=== PATIENT | female | born 2005 | race Caucasian/White ===

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

== ENCOUNTER → 2023-08-22 | Outpatient (CLI) | payer OTHER, SELFPAY ==
--- OUTSIDE RECORDS SUMMARY | 2023-08-22 18:09 | XMS RPT_ITS | CCD ---
Author Name Unknown Address [address] [place] [address] Organization [facility] Results Test Name Value Interpretation Reference Range Facil ity Progress note 06-22-2021 Note Date & Type Note Facility 06-22-2021 Note HNO ID: [id number] Author: Jules Bello APRN.[employer] Service: ? Author Type: Nurse Practitioner Type: Progress Notes Filed: 06/22/2021 3:27 PM Note Text: Subjective HPI Nontoxic appearing female presents urgent care chiefly COVID-19 concerns. Patient states she was exposed to a teammate who tested positive for COVID-19 on Friday. Presents today for COVID-19 testing. Patient is asymptomatic. No pain no OTC medication use. Denies history of COVID-19 is not vaccinated. Denies any fever body aches chills cough chest pain shortness of breath pleuritic pain nausea vomiting abdominal pain headaches dizziness change in bowel or bladder habits. Past medical history prescription medication use allergies reviewed. .Patient presents with: COVID exposure: COVID exposure PAST MEDICAL HISTORY Diagnosis Date - Menstrual periods irregular -2014 Age 9 - NEGATIVE MEDICAL HISTORY 2010 normal color vision PAST SURGICAL HISTORY Procedure Laterality Date - NONE ALLERGIES Patient has no known allergies. MEDICATIONS No prescriptions on file. FAMILY HISTORY Problem Relation Age of Onset - Thyroid Maternal Grandmother - Cancer Paternal Grandfather Prostate cancer - Cancer Other Paternal Great Grandmother -Breast cancer - Blood Disease Other Blood clots Social History Tobacco Use - Smoking status: Passive Smoke Exposure - Never Smoker - Smokeless tobacco: Never Used - Tobacco comment: outdoors only Substance Use Topics - Alcohol use: No - Drug use: No BP 128/80 Pulse 94 Temp 36.7 ?C (98.1 ?F) (Tympanic) Resp 16 Wt 79.8 kg (176 lb) LMP (LMP Unknown) SpO2 98% Review of Systems Constitutional: Negative for chills, fever and malaise/fatigue. HENT: Negative for congestion, ear discharge, ear pain, sinus pain and sore throat. Eyes: Negative for blurred vision, pain, discharge and redness. Respiratory: Negative for cough, hemoptysis, sputum production, shortness of breath, wheezing and stridor. Cardiovascular: Negative for chest pain. Gastrointestinal: Negative for abdominal pain, diarrhea, nausea and vomiting. Musculoskeletal: Negative for myalgias. Skin: Negative for itching and rash. Neurological: Negative for dizziness and headaches. Objective Physical Exam Constitutional: General: She is not in acute distress. Appearance: She is not diaphoretic. HENT: Head: Normocephalic. Mouth/Throat: Mouth: Mucous membranes are moist. Pharynx: Oropharynx is clear. No oropharyngeal exudate or posterior oropharyngeal erythema. Eyes: Conjunctiva/sclera: Conjunctivae normal. Pupils: Pupils are equal, round, and reactive to light. Cardiovascular: Rate and Rhythm: Normal rate and regular rhythm. Heart sounds: Normal heart sounds. Pulmonary: Effort: Pulmonary effort is normal. No tachypnea, accessory muscle usage or respiratory distress. Breath sounds: Normal breath sounds. No stridor. Abdominal: Palpations: Abdomen is soft. Tenderness: There is no abdominal tenderness. Musculoskeletal: Cervical back: Normal range of motion and neck supple. No rigidity or tenderness. Lymphadenopathy: Cervical: No cervical adenopathy. Skin: General: Skin is warm and dry. Neurological: Mental Status: She is alert and oriented to person, place, and time. ASSESSMENT/PLAN: 1. Exposure to COVID-19 virus - ICD9: V01.79, ICD10: Z20.822 - COVID, FLU A/B + RSV, ROUTINE COVID-19 test ordered results pending. Home quarantine recommended. Red flags for prompt reevaluation discussed. Jules Bello APRN.[facility] Summary Purpose Family History No Family History Records Found Advance Directives No Advanced Directives Records Found Additional Source Comments INFORMATION SOURCE (unrecogn ized section and content) FOR RECORDS PERTAINING TO PATIENTS WHO ARE OR HAVE BEEN ENROLLED IN A CHEMICAL DEPENDENCY/SUBSTANCEABUSE PROGRAM, SOME INFORMATION MAY BE OMITTED. This clinical summary was aggregated from multiple sources. Caution should be exercised in using it in the provision of clinical care. This summary normalizes information from multiple sources, and as a consequence, information in this document may materially change the coding, format and clinical context of patient data. In addition, data may be omitted in some cases. CLINICAL DECISIONS SHOULD BE BASED ON THE PRIMARY CLINICAL RECORDS. [employer] [facility]. provides no warranty or guarantee of the accuracy or completeness of information in this document.
[2023-08-22 18:13] LABS: Cholesterol 214 mg/dL (200); High Density Lipoprotein 50 mg/dL; Thyroid Stim Hormone (TSH) 2.45 uIU/mL (0.358-3.74); Triglycerides 214 mg/dL; Very Low Density Lipoprotein 43 mg/dL (5-40)
== END | disposition home or self-care (01) ==
LOC: MFPLAB 16:34
PROVIDERS: PCP Family Medicine; Visit Provider Family Medicine
DX: E78.5 Hyperlipidemia, unspecified (principal); Z83.49 Family history of other endocrine, nutritional and metabolic diseases
CPT/HCPCS: 36415; 80061; 84443

== ENCOUNTER → 2023-11-03 | Outpatient (CLI) | payer OTHER, SELFPAY ==
[2023-11-03 11:19] LABS: AST(SGOT) 14 U/L (15-37); Alanine Aminotransfer ALT/SGPT 13 U/L (13-56); Cholesterol 200 mg/dL (200); High Density Lipoprotein 46 mg/dL; Triglycerides 168 mg/dL; Very Low Density Lipoprotein 34 mg/dL (5-40)
== END | disposition home or self-care (01) ==
PROVIDERS: PCP Family Medicine; Referring Provider Physician Assistant; Visit Provider Physician Assistant
DX: L70.0 Acne vulgaris (principal); Z79.899 Other long term (current) drug therapy
CPT/HCPCS: 36415; 80061; 84450; 84460

== ENCOUNTER → 2023-12-08 | Outpatient (CLI) | payer OTHER, SELFPAY ==
[2023-12-08 15:49] LABS: Internal QC Validated? YES +Cl - CLEAR BKGD; Pregnancy, Urine Negative Negative
== END | disposition home or self-care (01) ==
LOC: MTLAB 13:02
PROVIDERS: PCP Family Medicine; Referring Provider Physician Assistant; Visit Provider Physician Assistant
DX: L70.0 Acne vulgaris (principal); Z79.899 Other long term (current) drug therapy
CPT/HCPCS: 81025

== ENCOUNTER → 2023-12-19 | Outpatient (CLI) | payer OTHER, SELFPAY ==
[2023-12-23 17:08] LABS: QNTFERON TB Mitogen Value > 10.00 IU/mL (.); QNTFERON TB Nil Value 0.03 IU/mL (.); QNTFERON TB1+ Ag Value 0.01 IU/mL (.); QNTFERON TB2+ Ag Value 0.02 IU/mL (.); QNTIFERON TB Positive Criteria Negative (Negative)
== END | disposition home or self-care (01) ==
LOC: MTLAB 13:35
PROVIDERS: PCP Family Medicine; Referring Provider Family Medicine; Visit Provider Family Medicine
DX: Z11.1 Encounter for screening for respiratory tuberculosis (principal)
CPT/HCPCS: 36415; 86480

== ENCOUNTER → 2024-01-14 | Outpatient (CLI) | payer OTHER, SELFPAY ==
[2024-01-14 10:36] LABS: AST(SGOT) 13 U/L (15-37); Alanine Aminotransfer ALT/SGPT 13 U/L (13-56); Cholesterol 212 mg/dL (200); High Density Lipoprotein 44 mg/dL; Triglycerides 316 mg/dL; Very Low Density Lipoprotein 63 mg/dL (5-40)
== END | disposition home or self-care (01) ==
LOC: MTLAB 08:44
PROVIDERS: PCP Family Medicine; Referring Provider Physician Assistant; Visit Provider Physician Assistant
DX: L70.0 Acne vulgaris (principal); Z79.899 Other long term (current) drug therapy
CPT/HCPCS: 36415; 80061; 84450; 84460

== ENCOUNTER → 2024-02-17 | Outpatient (CLI) | payer OTHER, SELFPAY ==
[2024-02-17 12:51] LABS: AST(SGOT) 18 U/L (15-37); Alanine Aminotransfer ALT/SGPT 18 U/L (13-56); Cholesterol 225 mg/dL (200); High Density Lipoprotein 40 mg/dL; Triglycerides 273 mg/dL; Very Low Density Lipoprotein 55 mg/dL (5-40)
== END | disposition home or self-care (01) ==
LOC: MTLAB 09:48
PROVIDERS: PCP Family Medicine; Referring Provider Physician Assistant; Visit Provider Physician Assistant
DX: L70.0 Acne vulgaris (principal); Z79.899 Other long term (current) drug therapy
CPT/HCPCS: 36415; 80061; 84450; 84460

== ENCOUNTER → 2024-03-23 | Outpatient (CLI) | payer OTHER, SELFPAY ==
[2024-03-23 13:25] LABS: Cholesterol 247 mg/dL (200); High Density Lipoprotein 43 mg/dL; Triglycerides 323 mg/dL; Very Low Density Lipoprotein 65 mg/dL (5-40)
== END | disposition home or self-care (01) ==
LOC: MTLAB 09:27
PROVIDERS: PCP Family Medicine; Referring Provider Physician Assistant; Visit Provider Physician Assistant
DX: L70.0 Acne vulgaris (principal); Z79.899 Other long term (current) drug therapy
CPT/HCPCS: 36415; 80061

== ENCOUNTER → 2024-05-03 | Outpatient (CLI) | payer OTHER, SELFPAY ==
[2024-05-03 12:59] LABS: AST(SGOT) 12 U/L (15-37); Alanine Aminotransfer ALT/SGPT 9 U/L (13-56); Cholesterol 217 mg/dL (200); High Density Lipoprotein 46 mg/dL; Triglycerides 214 mg/dL; Very Low Density Lipoprotein 43 mg/dL (5-40)
== END | disposition home or self-care (01) ==
PROVIDERS: PCP Family Medicine; Referring Provider Physician Assistant; Visit Provider Physician Assistant
DX: L70.0 Acne vulgaris (principal); Z79.899 Other long term (current) drug therapy
CPT/HCPCS: 36415; 80061; 84450; 84460

== ENCOUNTER → 2024-09-24 | Outpatient (CLI) | payer OTHER, SELFPAY ==
[2024-09-24 12:43] LABS: Absolute Lymphocyte Count 1.97 X10^3/uL (0.83-4.51); Absolute Neutrophil Count 2.9 X10^3/uL (2.0-7.7); Basophil# 0.02 X10^3/uL; Basophil% 0.4 % (0-1); Eosinophil# 0.06 X10^3/uL; Eosinophils% 1.1 % (0-5); Hemoglobin 11.9 g/dL (12.0-15.0); Lymphocyte # 1.97 X10^3/ul (0.83-4.51); Lymphocyte % 35.2 % (19-41); Mean Corp Hgb Conc 33.1 g/dL (32-36); Mean Corpuscular Hgb 28.7 pg (27.0-32.0); Mean Corpuscular Volume 86.7 fL (81-99); Mean Platelet Vol. 10.2 fl (6.2-12.0); Monocyte# 0.62 X10^3/uL; Monocyte% 11.1 % (0-10); NRBC Flagged by Analyzer 0 % (0-5); Neutrophil # 2.92 X10^3/uL (2.7-7.7); Platelet Count 334 K/mm3 (150-450); RBC Distribution Width SD 40.9 fl (35.1-43.9); Red Blood Count 4.15 M/mm3 (4.2-5.4); White Blood Count 5.6 K/mm3 (4.4-11.0)
[2024-09-24 13:30] LABS: ALB/GLOB Ratio 1.4 RATIO (0.9-2.4); AST(SGOT) 17 U/L (<=31); Alanine Aminotransfer ALT/SGPT 8 U/L (<=34); Albumin, Serum 4.5 g/dL (3.5-5.0); Alkaline Phosphatase 52 U/L (35-104); Anion Gap 14 (5-15); BUN 10 mg/dL (4-19); BUN/Creat Ratio 11.9 RATIO (10-20); Calcium,Total 10.1 mg/dL (7.6-11.0); Carbon Dioxide 20.9 mmol/L (21.0-32.0); Chloride 103 mmol/L (98-108); Creatinine, Serum 0.87 mg/dL (0.70-1.20); EST Glomerular Filtration Rate 98 (>60); Globulin 3.2 g/dL (2.2-4.2); Glucose 94 mg/dL (70-99); Protein, Total 7.7 g/dL (5.9-8.4); Sodium Level 138 mmol/L (133-145); Total Bilirubin 0.16 mg/dL (0.00-1.30)
== END | disposition home or self-care (01) ==
LOC: MFPLAB 10:57
PROVIDERS: PCP Family Medicine; Referring Provider Family Medicine; Visit Provider Family Medicine
DX: R00.0 Tachycardia, unspecified (principal)
CPT/HCPCS: 36415; 80053; 84443; 85025

== ENCOUNTER → 2024-10-21 | Outpatient (CLI) | payer OTHER, SELFPAY ==
[2024-10-21 11:08] LABS: Internal QC Validated? YES +Cl - CLEAR BKGD; Pregnancy, Urine Negative Negative
== END | disposition home or self-care (01) ==
LOC: MTLAB 09:06
PROVIDERS: PCP Family Medicine; Referring Provider Physician Assistant; Visit Provider Physician Assistant
DX: L70.0 Acne vulgaris (principal); Z79.899 Other long term (current) drug therapy
CPT/HCPCS: 81025

== ENCOUNTER → 2024-12-06 | Outpatient (CLI) | payer OTHER, SELFPAY ==
[2024-12-06 12:54] LABS: Absolute Lymphocyte Count 2.57 X10^3/uL (0.83-4.51); Absolute Neutrophil Count 3.4 X10^3/uL (2.0-7.7); Basophil# 0.03 X10^3/uL; Basophil% 0.4 % (0-1); Eosinophil# 0.16 X10^3/uL; Eosinophils% 2.4 % (0-5); Hematocrit 35.1 % (37-47); Hemoglobin 11.9 g/dL (12.0-15.0); Lymphocyte # 2.57 X10^3/ul (0.83-4.51); Lymphocyte % 38.4 % (19-41); Mean Corp Hgb Conc 33.9 g/dL (32-36); Mean Corpuscular Hgb 29.2 pg (27.0-32.0); Mean Corpuscular Volume 86.2 fL (81-99); Mean Platelet Vol. 10.2 fl (6.2-12.0); Monocyte# 0.55 X10^3/uL; Monocyte% 8.2 % (0-10); NRBC Flagged by Analyzer 0 % (0-5); Neutrophil # 3.38 X10^3/uL (2.7-7.7); Neutrophil % 50.5 % (47-70); Platelet Count 306 K/mm3 (150-450); RBC Distribution Width CV 12.6 % (11.6-14.6); RBC Distribution Width SD 39.7 fl (35.1-43.9); Red Blood Count 4.07 M/mm3 (4.2-5.4); White Blood Count 6.7 K/mm3 (4.4-11.0)
[2024-12-06 14:03] LABS: ALB/GLOB Ratio 1.3 RATIO (0.9-2.4); AST(SGOT) 17 U/L (<=31); Alanine Aminotransfer ALT/SGPT 9 U/L (<=34); Albumin, Serum 4.2 g/dL (3.5-5.0); Alkaline Phosphatase 51 U/L (35-104); Anion Gap 15 (5-15); BUN 12 mg/dL (4-19); BUN/Creat Ratio 13.8 RATIO (10-20); Calcium,Total 9.6 mg/dL (7.6-11.0); Carbon Dioxide 19.5 mmol/L (21.0-32.0); Chloride 104 mmol/L (98-108); Creatinine, Serum 0.85 mg/dL (0.70-1.20); EST Glomerular Filtration Rate 100 (>60); Globulin 3.1 g/dL (2.2-4.2); Glucose 116 mg/dL (70-99); Potassium 3.7 mmol/L (3.3-5.1); Protein, Total 7.3 g/dL (5.9-8.4); Sodium Level 138 mmol/L (133-145); Total Bilirubin 0.26 mg/dL (0.00-1.30)
== END | disposition home or self-care (01) ==
LOC: MFPLAB 10:59
PROVIDERS: PCP Family Medicine; Visit Provider Family Medicine
DX: R00.0 Tachycardia, unspecified (principal); Z11.1 Encounter for screening for respiratory tuberculosis
CPT/HCPCS: 36415; 80053; 84443; 85025; 86480

== ENCOUNTER → 2025-01-10 | Outpatient (CLI) | payer OTHER, SELFPAY ==
[2025-01-10 17:13] LABS: Hematocrit 35.4 % (37-47); Hemoglobin 12.1 g/dL (12.0-15.0); Immature Granulocytes Count 0.010 X10^3/uL (0.0-0.0); Mean Corp Hgb Conc 34.2 g/dL (32-36); Mean Corpuscular Volume 85.1 fL (81-99); Mean Platelet Vol. 10.0 fl (6.2-12.0); NRBC Flagged by Analyzer 0 % (0-5); Platelet Count 331 K/mm3 (150-450); RBC Distribution Width CV 12.3 % (11.6-14.6); RBC Distribution Width SD 38.0 fl (35.1-43.9); Red Blood Count 4.16 M/mm3 (4.2-5.4); White Blood Count 6.7 K/mm3 (4.4-11.0)
[2025-01-10 17:32] LABS: Cholesterol 215 mg/dL (<=190); Low Density Lipoprotein Calc. 105 mg/dL; Triglycerides 297 mg/dL; Very Low Density Lipoprotein 59 mg/dL (5-40); cholesterol:hdl ratio screen 4.24
[2025-01-10 17:47] LABS: AST(SGOT) 20 U/L (<=31); Alanine Aminotransfer ALT/SGPT 10 U/L (<=34); Albumin, Serum 4.4 g/dL (3.5-5.0); Alkaline Phosphatase 56 U/L (35-104); Anion Gap 15 (5-15); BUN 13 mg/dL (4-19); BUN/Creat Ratio 15.3 RATIO (10-20); Calcium,Total 9.8 mg/dL (7.6-11.0); Carbon Dioxide 19.1 mmol/L (21.0-32.0); Chloride 105 mmol/L (98-108); Globulin 3.1 g/dL (2.2-4.2); Glucose 104 mg/dL (70-99); Potassium 3.9 mmol/L (3.3-5.1)
== END | disposition home or self-care (01) ==
LOC: BIMLAB 14:41
PROVIDERS: PCP Internal Medicine; Referring Provider Internal Medicine; Visit Provider Internal Medicine
DX: R00.2 Palpitations (principal); E78.5 Hyperlipidemia, unspecified
CPT/HCPCS: 36415; 80053; 80061; 84439; 84443; 84482; 85025